=== PATIENT | female | born 1945 | race African-American/Black ===

== ENCOUNTER 2016-11-04 19:46 | Observation (INO) | payer BC, OTHER ==
[2016-11-04 19:53] VITALS: BMI 29.2
[2016-11-04] MEDS ORDERED: ASPIRIN 81 MG CHEWABLE TABLETS PO ONE (20:43)
[2016-11-04] MEDS ORDERED: ASPIRIN 81 MG CHEWABLE TABLETS ONE (20:46)
[2016-11-04 21:12] LABS: BASOPHIL 0.7 % (0-2.0); EOSINOPHIL 1.9 % (0-4.5); MCH 24.7 pg (25.7-33.7); MCHC 31.1 g/dl (32.0-36.0); MEAN CELL VOLUME 79.5 fl (80-96); MEAN PLT VOLUME 9.8 fl (7.5-11.1); NEUTROPHILS 46.3 % (42.8-82.8); PLATELET COUNT 295 K/MM3 (134-434); RDW 16.4 % (11.6-15.6); WHITE BLOOD COUNT 4.8 K/mm3 (4.0-10.0)
[2016-11-04 21:29] LABS: INR 1.74 (0.82-1.09); PROTHROMBIN TIME (PATIENT) 19.4 SEC (9.98-11.88)
[2016-11-04 21:32] LABS: ACTIVATED PTT 52.9 SECONDS (26.9-34.4)
[2016-11-04 21:38] LABS: ALBUMIN 3.8 g/dl (3.4-5.0); ANION GAP 5 (8-16); BILIRUBIN,TOTAL 0.3 mg/dL (0.2-1.0); CALCIUM 9.4 mg/dL (8.5-10.1); CO2 28 mmol/L (21-32); CREATININE 0.9 mg/dL (0.55-1.02); GLUCOSE,RANDOM 74 mg/dL (74-106); SGOT/AST 15 U/L (15-37); SGPT/ALT 19 U/L (12-78); TOT PROT 8.2 g/dl (6.4-8.2)
[2016-11-04 21:44] LABS: ALK PHOS 60 U/L (45-117); TROPONIN I < 0.02 ng/ml (0.00-0.05)
[2016-11-04 21:45] LABS: THYROID STIMULATING HORMONE 4.51 uIU/ml (0.358-3.74)
--- NOTE | 2016-11-04 22:51 | PDOC ---
History of Present Illness - General History Source: Patient, Old Records Exam Limitations: No Limitations - History of Present Illness Initial Comments: 11/04/16 22:56 The patient is a 71 year old female, with a significant past medical history of HTN, AFIB (on xarelto), HLD and Left sided breast CA (Cancer free since 1989), who presents to the emergency department with chest pain and palpitations 1 hour prior to presentation. She reports that she has had palpitations in that passed but never accompanied with chest tightness. She notes the palpitations usually resolve in less than a minute. She reports that she usually gets worked up by her perioperative nurse every 6 months. She states that her last stress test and echocardiogram were within normal limits. The patient denies shortness of breath, headache and dizziness. Denies fever, chills, nausea, vomit, diarrhea and constipation. Denies dysuria, frequency, urgency and hematuria. Allergies: None Past surgical history: None reported Social history: No alcohol, tobacco or drug use reported PMD - Dr. Melissa Henley Coater Helper - Dr. Cohen <Baldemar Juan - Last Filed: 11/04/16 23:49> - General History Source: Patient Exam Limitations: No Limitations <Júnior Crain - Last Filed: 11/05/16 00:08> - General Chief Complaint: Chest Pain Stated Complaint: PALPITATIONS Time Seen by Provider: 11/04/16 19:57 Past History <Baldemar Juan - Last Filed: 11/04/16 23:49> - Past Medical History Cancer: Yes (BREAST) Cardiac Disorders: Yes (A FIB) HTN: Yes Hypercholesterolemia: Yes - Immunization History Immunization Up to Date: Yes - Psycho/Social/Smoking Cessation Hx Anxiety: No Suicidal Ideation: No Smoking Status: No Smoking History: Former smoker Have you smoked in the past 12 months: No Number of Cigarettes Smoked Daily: 0 If you are a former smoker, when did you quit?: 35years ago Information on smoking cessation initiated: No Hx Alcohol Use: No Drug/Substance Use Hx: No Substance Use Type: None <Júnior Crain - Last Filed: 11/05/16 00:08> - Past Medical History Allergies/Adverse Reactions: Allergies Allergy/AdvReac Type Severity Reaction Status Date / Time No Known Allergies Allergy Verified 11/04/16 19:49 Home Medications: Ambulatory Orders Amlodipine Besylate [Norvasc -] 10 mg PO DAILY 03/11/14 Atenolol [Tenormin -] 50 mg PO DAILY 03/11/14 Atorvastatin Ca [Lipitor -] 10 mg PO DAILY 03/11/14 Furosemide [Lasix -] 20 mg PO ASDIR 03/11/14 Rivaroxaban [Xarelto -] 15 mg PO DAILY 04/27/15 Review of Systems - Review of Systems Able to Perform ROS?: Yes Comments:: 11/04/16 22:56 GENERAL/CONSTITUTIONAL: No fever or chills. No weakness. HEAD, EYES, EARS, NOSE AND THROAT: No change in vision. No ear pain or discharge. No sore throat. CARDIOVASCULAR: +Chest pain and palpitations. No shortness of breath RESPIRATORY: No cough, wheezing, or hemoptysis. GASTROINTESTINAL: No nausea, vomiting, diarrhea or constipation. GENITOURINARY: No dysuria, frequency, or change in urination. MUSCULOSKELETAL: No joint or muscle swelling or pain. No neck or back pain. SKIN: No rash NEUROLOGIC: No headache, vertigo, loss of consciousness, or change in strength/ sensation. ENDOCRINE: No increased thirst. No abnormal weight change HEMATOLOGIC/LYMPHATIC: No anemia, easy bleeding, or history of blood clots. ALLERGIC/IMMUNOLOGIC: No hives or skin allergy. <Baldemar Juan - Last Filed: 11/04/16 23:49> *Physical Exam - Vital Signs Last Vital Signs Temp Pulse Resp BP Pulse Ox 98.3 F 63 16 127/80 100 11/04/16 19:49 11/04/16 19:49 11/04/16 19:49 11/04/16 19:49 11/04/16 19:49 - Physical Exam Comments: 11/04/16 22:56 GENERAL: Awake, alert, and fully oriented, in no acute distress HEAD: No signs of trauma, normocephalic, atraumatic EYES: PERRLA, EOMI, sclera anicteric, conjunctiva clear ENT: Auricles normal inspection, hearing grossly normal, nares patent, oropharynx clear without exudates. Moist mucosa NECK: Normal ROM, supple, no lymphadenopathy, JVD, or masses LUNGS: No distress, speaks full sentences, clear to auscultation bilaterally HEART: Regular rate and rhythm, normal S1 and S2, no murmurs, rubs or gallops, peripheral pulses normal and equal bilaterally. ABDOMEN: Soft, nontender, normoactive bowel sounds. No guarding, no rebound. No masses EXTREMITIES: Normal inspection, Normal range of motion, no edema. No clubbing or cyanosis. NEUROLOGICAL: Cranial nerves II through XII grossly intact. Normal speech, normal gait, no focal sensorimotor deficits SKIN: Warm, Dry, normal turgor, no rashes or lesions noted. <Baldemar Juan - Last Filed: 11/04/16 23:49> - Vital Signs Last Vital Signs Temp Pulse Resp BP Pulse Ox 98.3 F 63 16 127/80 100 11/04/16 19:49 11/04/16 19:49 11/04/16 19:49 11/04/16 19:49 11/04/16 19:49 <Júnior Crain - Last Filed: 11/05/16 00:08> Heart Score/ECG Review - History History: Highly suspicious - Electrocardiogram EKG: Normal - Age Age: >/= 65 - Risk Factors Risk Factors Heart Score: Yes Hx Hypertension Based on the list above the patient has:: 1-2 risk factors - Troponin Troponin: </= normal limit - Score Heart Score - Total: 5 #1 ECG reviewed & interpreted by me at: 20:05 11/04/16 22:54 NSR 61, LVH, no std/sherman, T wave flat III, QTC 420 msec <Júnior Crain - Last Filed: 11/05/16 00:08> ED Treatment Course - LABORATORY CBC & Chemistry Diagram: 11/04/16 21:00 11/04/16 21:00 - ADDITIONAL ORDERS Additional order review: Laboratory Results 11/04/16 11/04/16 21:00 21:00 INR 1.74 H D PTT (Actin FS) 52.9 H Sodium 140 Potassium 4.0 Chloride 107 Carbon Dioxide 28 Anion Gap 5 L BUN 11 Creatinine 0.9 D Creat Clearance w eGFR > 60 Random Glucose 74 D Calcium 9.4 Total Bilirubin 0.3 D AST 15 D ALT 19 D Alkaline Phosphatase 60 Creatine Kinase 70 Troponin I < 0.02 Total Protein 8.2 Albumin 3.8 TSH 4.51 H 11/04/16 21:00 RBC 4.71 MCV 79.5 L MCHC 31.1 L RDW 16.4 H D MPV 9.8 D Neutrophils % 46.3 Lymphocytes % 40.5 H Monocytes % 10.6 H Eosinophils % 1.9 D Basophils % 0.7 - RADIOLOGY Radiograph Interpretation: 11/04/16 22:57 Chest X-Ray Reviewed by: Dr. Susanna Velasquez Impression: No significant interval change or acute lung disease is present. - Medications Given in the ED: ED Medications Discontinued Medications Generic Name Dose Route Start Last Admin Trade Name Freq PRN Reason Stop Dose Admin Aspirin 324 mg 11/04/16 20:43 11/04/16 20:54 Asa - PO 11/04/16 20:44 324 mg ONCE ONE Administration <Baldemar Juan - Last Filed: 11/04/16 23:49> - LABORATORY CBC & Chemistry Diagram: 11/04/16 21:00 11/04/16 21:00 - ADDITIONAL ORDERS Additional order review: Laboratory Results 11/04/16 11/04/16 21:00 21:00 INR 1.74 H D PTT (Actin FS) 52.9 H Sodium 140 Potassium 4.0 Chloride 107 Carbon Dioxide 28 Anion Gap 5 L BUN 11 Creatinine 0.9 D Creat Clearance w eGFR > 60 Random Glucose 74 D Calcium 9.4 Total Bilirubin 0.3 D AST 15 D ALT 19 D Alkaline Phosphatase 60 Creatine Kinase 70 Troponin I < 0.02 Total Protein 8.2 Albumin 3.8 TSH 4.51 H 11/04/16 21:00 RBC 4.71 MCV 79.5 L MCHC 31.1 L RDW 16.4 H D MPV 9.8 D Neutrophils % 46.3 Lymphocytes % 40.5 H Monocytes % 10.6 H Eosinophils % 1.9 D Basophils % 0.7 - RADIOLOGY Radiology Studies Ordered: Category Date Time Status CHEST X-RAY PORTABLE* [RAD] Stat Radiology 11/04/16 20:29 Completed - Medications Given in the ED: ED Medications Discontinued Medications Generic Name Dose Route Start Last Admin Trade Name Freq PRN Reason Stop Dose Admin Aspirin 324 mg 11/04/16 20:43 11/04/16 20:54 Asa - PO 11/04/16 20:44 324 mg ONCE ONE Administration <Júnior Crain - Last Filed: 11/05/16 00:08> Medical Decision Making - Medical Decision Making 11/04/16 22:58 Dr. Magnolia Jeong was called regarding the patient 10:47pm. Dr. Jeong was consulted regarding the patient at 10:49pm [phone] <DrakeRylieBaldemarsherry Pardo - Last Filed: 11/04/16 23:49> - Medical Decision Making 11/04/16 22:51 A portion of this note was documented by scribe services under my direction. I have reviewed the details of the note, within reason, and agree with the documentation with the following case summary and management plan written by me. Patient treated in the ED. Nursing notes are reviewed and incorporated into the medical decision-making. Vital signs reviewed. Peripheral IV access obtained by the nurse, laboratory studies are drawn and sent, reviewed and interpreted by myself. Vital Signs Temp Pulse Resp BP Pulse Ox 98.3 F 63 16 127/80 100 11/04/16 19:49 11/04/16 19:49 11/04/16 19:49 11/04/16 19:49 11/04/16 19:49 71 year old female with past medical history of atrial fibrillation on xarleto, HTN, left sided breast cancer now in remission presents to the ED for chest discomfort. She was well and in her usual state of health when she was watching television and suddenly felt chest tightness and lightheadedness, but NO shortness of breath, nausea, diarphoresis. Reported that the chest tightness and resolved on her way to the ER. Denies pain now. 1st time episode. Did have a stress test several months ago which was unremarkable (at [facility]). Given her history, the patient needs to be LACIE'd. Initial troponin is negative and chest xray is unremarkable. However, given her concerning history, the patient should be admitted to observation for further cardiac workup. Aspirin ordered. 11/05/16 00:06 CBC, BMP 11/04/16 21:00 11/04/16 21:00 CMP Sodium 140 mmol/L (136-145) 11/04/16 21:00 Potassium 4.0 mmol/L (3.5-5.1) 11/04/16 21:00 Chloride 107 mmol/L (98-107) 11/04/16 21:00 Carbon Dioxide 28 mmol/L (21-32) 11/04/16 21:00 Anion Gap 5 (8-16) L 11/04/16 21:00 BUN 11 mg/dL (7-18) 11/04/16 21:00 Creatinine 0.9 mg/dL (0.55-1.02) D 11/04/16 21:00 Creat Clearance w eGFR > 60 (>60) 11/04/16 21:00 Random Glucose 74 mg/dL (74-106) D 11/04/16 21:00 Calcium 9.4 mg/dL (8.5-10.1) 11/04/16 21:00 Total Bilirubin 0.3 mg/dL (0.2-1.0) D 11/04/16 21:00 AST 15 U/L (15-37) D 11/04/16 21:00 ALT 19 U/L (12-78) D 11/04/16 21:00 Alkaline Phosphatase 60 U/L (45-117) 11/04/16 21:00 Creatine Kinase 70 IU/L (26-192) 11/04/16 21:00 Troponin I < 0.02 ng/ml (0.00-0.05) 11/04/16 21:00 Total Protein 8.2 g/dl (6.4-8.2) 11/04/16 21:00 Albumin 3.8 g/dl (3.4-5.0) 11/04/16 21:00 TSH 4.51 uIU/ml (0.358-3.74) H 11/04/16 21:00 Urine Test Results Urine Color Lt. yellow 11/04/16 22:50 Urine Appearance Clear 11/04/16 22:50 Urine pH 7.5 (5.0-8.0) 11/04/16 22:50 Ur Specific [place] <= 1.005 (1.001-1.035) 11/04/16 22:50 Urine Protein Negative (NEGATIVE) 11/04/16 22:50 Urine Glucose (UA) Negative (NEGATIVE) 11/04/16 22:50 Urine Ketones Negative (NEGATIVE) 11/04/16 22:50 Urine Blood Negative (NEGATIVE) 11/04/16 22:50 Urine Nitrite Negative (NEGATIVE) 11/04/16 22:50 Urine Bilirubin Negative (NEGATIVE) 11/04/16 22:50 Ur Leukocyte Esterase Negative (NEGATIVE) 11/04/16 22:50 Labs reviewed. Trop negative. Chest xray reviewed. No acute findings. I had discussed the case with Dr. Magnolia Jeong. Because the patient is an observation patient, she requests hospitalist. Case discussed with Dr. Arreola. She accepts the patient to tele observation. Case discussed in detail with admitting physician including history, physical exam and ancillary studies. Admitting physician has assumed care for the patient, will follow all pending diagnostics and will complete the evaluation and treatment. <Júnior Crain - Last Filed: 11/05/16 00:08> *DC/Admit/Observation/Transfer - Attestations Scribe Attestion: 11/04/16 22:57 Documentation prepared by Baldemar Juan, acting as electromedical equipment technician for Júnior Crain MD. <Baldemar Juan - Last Filed: 11/04/16 23:49> - Discharge Dispostion Admit: Yes <Júnior Crain - Last Filed: 11/05/16 00:08> Diagnosis at time of Disposition: Chest pain Qualifiers: Chest pain type: unspecified Qualified Code(s): R07.9 - Chest pain, unspecified - Discharge Dispostion Condition at time of disposition: Stable - Referrals Referrals: Melissa Henley MD [Primary Care Provider] -
[2016-11-04 23:05] LABS: PH,URINE 7.5 (5.0-8.0); URINE APPEARANCE CLEAR; URINE BILIRUBIN NEGATIVE (NEGATIVE); URINE BLOOD NEGATIVE (NEGATIVE); URINE COLOR LT. YELLOW; URINE GLUCOSE (UA) NEGATIVE (NEGATIVE); URINE KETONE NEGATIVE (NEGATIVE); URINE LEUK ESTERASE NEGATIVE (NEGATIVE); URINE NITRITE NEGATIVE (NEGATIVE); URINE PROTEIN NEGATIVE (NEGATIVE); URINE UROBILINOGEN 0.2 E.U/dl E.U./dl (0.2-1.0)
--- NOTE | 2016-11-04 23:56 | HP ---
CHIEF COMPLAINT: PCP: Dr Malcolm Cardio: Dr Shell HISTORY OF PRESENT ILLNESS: This is a 71 yo F with PMH of HLD, HTN, AFIB (on xarelto), and L breast CA (1989 ; s/p chemo, tamoxifen and mastectomy), who presents due to palpitations with associated chest tightness and lightheadedness x 1 hr. She has had palpitations before but they last only a few seconds and are not associated with chest discomfort. She has never had chest pain. At the time of her symptoms, she measured her BP and heart rate with a machine to be 136 systolic and 62 BPM. She sees a ups driver every 6 months and had a negative stress test and echocardiogram recently. She denies h/a, consfusion, loc, diaphroresis, cough, orthopnea, n/v, abd pain, diarrhea, constipation or dysuria. ER course was notable for: (1) labs (2)cxr, ekg (3)asa 324 Recent Travel: denies PAST MEDICAL HISTORY: as above PAST SURGICAL HISTORY: unilateral mastectomy, breast reconstruction, L ankle surgery Social History: lives at home, retired Smoking: past social smoker 3 cigs/w in her 20's Alcohol: 1 glass/week Drugs: denies Family History: Allergies No Known Allergies Allergy (Verified 11/04/16 19:49) HOME MEDICATIONS: Medication Instructions Recorded Amlodipine Besylate [Norvasc -] 10 mg PO DAILY 03/11/14 Atenolol [Tenormin -] 50 mg PO DAILY 03/11/14 Atorvastatin Ca [Lipitor -] 10 mg PO DAILY 03/11/14 Furosemide [Lasix -] 20 mg PO ASDIR 03/11/14 Rivaroxaban [Xarelto -] 15 mg PO DAILY 04/27/15 REVIEW OF SYSTEMS CONSTITUTIONAL: Absent: fever, chills, diaphoresis, malaise, loss of appetite, weight change HEENT: Absent: rhinorrhea, nasal congestion, throat pain CARDIOVASCULAR: Absent: syncope, peripheral edema RESPIRATORY: Absent: cough, shortness of breath, dyspnea with exertion, orthopnea GASTROINTESTINAL: Absent: abdominal pain, abdominal distension, nausea, vomiting, diarrhea, constipation GENITOURINARY: Absent: dysuria, frequency, urgency MUSCULOSKELETAL: Absent: myalgia, arthralgia SKIN: Absent: rash HEMATOLOGIC/IMMUNOLOGIC: Absent: easy bleeding, easy bruising ENDOCRINE: Absent: unexplained weight gain, unexplained weight loss, heat intolerance, cold intolerance NEUROLOGIC: Absent: headache, focal weakness or paresthesias, seizure, mental status changes PSYCHIATRIC: Absent: anxiety, depression PHYSICAL EXAMINATION Vital Signs - 24 hr 11/04/16 11/04/16 19:49 23:51 Temperature 98.3 F Pulse Rate 63 Respiratory 16 Rate Blood Pressure 127/80 O2 Sat by Pulse 100 98 Oximetry (%) GENERAL: Awake, alert, and fully oriented, in no acute distress. HEAD: Normal with no signs of trauma. EYES: Pupils equal, round and reactive to light, extraocular movements intact, sclera anicteric, conjunctiva clear. EARS, NOSE, THROAT: Moist mucous membranes. NECK: supple without JVD LUNGS: Breath sounds equal, clear to auscultation bilaterally. HEART: Regular rate and rhythm, normal S1 and S2 ABDOMEN: Soft, nontender, not distended, normoactive bowel sounds MUSCULOSKELETAL: No CVA tenderness. UPPER EXTREMITIES: 2+ pulses, warm, well-perfused. No peripheral edema. LOWER EXTREMITIES: 2+ pulses, warm, well-perfused. No calf tenderness. No peripheral edema. NEUROLOGICAL: Cranial nerves II-XII grossly intact. Normal speech. PSYCHIATRIC: Cooperative. Good eye contact. Appropriate mood and affect. SKIN: Warm, dry Laboratory Results - last 24 hr 11/04/16 11/04/16 11/04/16 21:00 21:00 21:00 WBC 4.8 RBC 4.71 Hgb 11.6 D Hct 37.5 D MCV 79.5 L MCHC 31.1 L RDW 16.4 H D Plt Count 295 D MPV 9.8 D Neutrophils % 46.3 Lymphocytes % 40.5 H Monocytes % 10.6 H Eosinophils % 1.9 D Basophils % 0.7 INR 1.74 H D PTT (Actin FS) 52.9 H Sodium 140 Potassium 4.0 Chloride 107 Carbon Dioxide 28 Anion Gap 5 L BUN 11 Creatinine 0.9 D Creat Clearance w eGFR > 60 Random Glucose 74 D Calcium 9.4 Total Bilirubin 0.3 D AST 15 D ALT 19 D Alkaline Phosphatase 60 Creatine Kinase 70 Troponin I < 0.02 Total Protein 8.2 Albumin 3.8 TSH 4.51 H Urine Color Urine Appearance Urine pH Ur Specific [place] Urine Protein Urine Glucose (UA) Urine Ketones Urine Blood Urine Nitrite Urine Bilirubin Urine Urobilinogen Ur Leukocyte Esterase 11/04/16 22:50 WBC RBC Hgb Hct MCV MCHC RDW Plt Count MPV Neutrophils % Lymphocytes % Monocytes % Eosinophils % Basophils % INR PTT (Actin FS) Sodium Potassium Chloride Carbon Dioxide Anion Gap BUN Creatinine Creat Clearance w eGFR Random Glucose Calcium Total Bilirubin AST ALT Alkaline Phosphatase Creatine Kinase Troponin I Total Protein Albumin TSH Urine Color Lt. yellow Urine Appearance Clear Urine pH 7.5 Ur Specific [place] <= 1.005 Urine Protein Negative Urine Glucose (UA) Negative Urine Ketones Negative Urine Blood Negative Urine Nitrite Negative Urine Bilirubin Negative Urine Urobilinogen 0.2 e.u/dl Ur Leukocyte Esterase Negative ASSESSMENT/PLAN: This is a 71 yo F with PMH of HLD, HTN, AFIB (on xarelto), and L breast CA (1989 ; s/p chemo, tamoxifen and mastectomy), who presents due to palpitations with associated chest tightness and lightheadedness x 1 hr. CXR unremarkable EKG unremarkable Palpitations with chest tightness -resolved spontaneously -likely due to an episode of a fib -HEART score =4 -Chadsvasc=3 -RRR on ekg, trop negative x1 -s/p asa load, asa 81 daily -tele monitoring r/o arrythmia -bmp unremakable for electrolyte abnormalities Elevated TSH -free t4 A fib -continue xeralto HTN -amlodipine -atenolol -lasix HLD -statin FEN no ivf lytes stable DVT GI PPX: scd, xeralto, diet NA restricted diet Dispo: obs in tele Problem List - Problem (1) Atrial fibrillation Code(s): I48.91 - UNSPECIFIED ATRIAL FIBRILLATION (2) Palpitations Code(s): R00.2 - PALPITATIONS (3) Chest tightness Code(s): R07.89 - OTHER CHEST PAIN (4) HTN (hypertension) Code(s): I10 - ESSENTIAL (PRIMARY) HYPERTENSION (5) HLD (hyperlipidemia) Code(s): E78.5 - HYPERLIPIDEMIA, UNSPECIFIED Visit type - Emergency Visit Emergency Visit: Yes Care time: The patient presented to the Emergency Department on the above date and was hospitalized for further evaluation of their emergent condition. - New Patient This patient is new to me today: Yes Date on this admission: 11/05/16 - Critical Care Critical Care patient: No
--- NOTE | 2016-11-04 23:57 | PN ---
<Saurav Arreola - Last Filed: 11/04/16 23:56> Teaching Attending Note Name of Resident: Leela Faustin ATTENDING PHYSICIAN STATEMENT I saw and evaluated the patient. I reviewed the resident's note and discussed the case with the resident. I agree with the resident's findings and plan as documented. SUBJECTIVE: OBJECTIVE: ASSESSMENT AND PLAN: <JennEduardo - Last Filed: 11/05/16 01:46> Teaching Attending Note ATTENDING PHYSICIAN STATEMENT I saw and evaluated the patient. I reviewed the resident's note and discussed the case with the resident. I agree with the resident's findings and plan as documented. SUBJECTIVE: The patient is a 71 year old female, with a significant past medical history of HTN, AFIB (on xarelto), HLD and Left sided breast CA (s/p chemotherapy), who presents to the emergency department with palpitations that started today and lasted one hour. She reports chest tightness. She notes that she has had palpitations in that passed but never accompanied with chest tightness. She reports that her last stress test and echocardiogram were one year ago and within normal limits. Patient denies SOB, fever, cough, and diarrhea. OBJECTIVE: Physical: VS: Last Vital Signs Temp Pulse Resp BP Pulse Ox 98.3 F 63 16 127/80 98 11/04/16 19:49 11/04/16 19:49 11/04/16 19:49 11/04/16 19:49 11/04/16 23:51 GEN: NAD HEENT: NCAT, PERRL CARD: RRR, S1 S2 RESP: CTAB ABD: NT, BWS x4 EXT: - CCE Labs: CBCD WBC 4.8 K/mm3 (4.0-10.0) 11/04/16 21:00 RBC 4.71 M/mm3 (3.60-5.2) 11/04/16 21:00 Hgb 11.6 GM/dL (10.7-15.3) D 11/04/16 21:00 Hct 37.5 % (32.4-45.2) D 11/04/16 21:00 MCV 79.5 fl (80-96) L 11/04/16 21:00 MCHC 31.1 g/dl (32.0-36.0) L 11/04/16 21:00 RDW 16.4 % (11.6-15.6) H D 11/04/16 21:00 Plt Count 295 K/MM3 (134-434) D 11/04/16 21:00 MPV 9.8 fl (7.5-11.1) D 11/04/16 21:00 CMP Sodium 140 mmol/L (136-145) 11/04/16 21:00 Potassium 4.0 mmol/L (3.5-5.1) 11/04/16 21:00 Chloride 107 mmol/L (98-107) 11/04/16 21:00 Carbon Dioxide 28 mmol/L (21-32) 11/04/16 21:00 Anion Gap 5 (8-16) L 11/04/16 21:00 BUN 11 mg/dL (7-18) 11/04/16 21:00 Creatinine 0.9 mg/dL (0.55-1.02) D 11/04/16 21:00 Creat Clearance w eGFR > 60 (>60) 11/04/16 21:00 Calcium 9.4 mg/dL (8.5-10.1) 11/04/16 21:00 Total Bilirubin 0.3 mg/dL (0.2-1.0) D 11/04/16 21:00 AST 15 U/L (15-37) D 11/04/16 21:00 ALT 19 U/L (12-78) D 11/04/16 21:00 Alkaline Phosphatase 60 U/L (45-117) 11/04/16 21:00 Total Protein 8.2 g/dl (6.4-8.2) 11/04/16 21:00 Albumin 3.8 g/dl (3.4-5.0) 11/04/16 21:00 Imaging: CXR Impression: negative for any acute lung disease ASSESSMENT AND PLAN: Patient is a 71 year old female with a past medical history of AFIB, HTN, and Breast Cancer who presents with chest pain. 1.Chest Pain -r/o ACS -Hear score 4 -Trend Troponin/ECG -Cardiology consult -Aspirin -Continue beta block -O2 -Morphine/Nitro -ECHO complete 2.HLD -Check lipid panel -Continue statin 3.AFIB - Continue rate control and beta omar -Continue Xarelto -chaDS2 vaSC 3 4.DVT PPX -On Xarelto Documentation prepared by Eduardo Barajas, acting as medical device sales representative for Saurav Arreola D.O.
[2016-11-05] MEDS ORDERED: FUROSEMIDE 20 MG TABLET (FP) PO SCH (01:00)
[2016-11-05 09:03] LABS: ANION GAP 9 (8-16); CALCIUM 9.2 mg/dL (8.5-10.1); CO2 26 mmol/L (21-32); CREATININE 0.8 mg/dL (0.55-1.02); FREE T4 1.18 ng/dl (0.76-1.46); GLUCOSE,RANDOM 87 mg/dL (74-106); MAGNESIUM 2.4 mg/dL (1.8-2.4); PHOSPHOROUS 3.7 mg/dL (2.5-4.9); TROPONIN I < 0.02 ng/ml (0.00-0.05)
[2016-11-05] MEDS ORDERED: RIVAROXABAN 15 MG TABLET PO SCH (10:00)
[2016-11-05] MEDS ORDERED: amLODIPine BESYLATE 10 MG TABLET (FP) PO SCH (10:00)
[2016-11-05] MEDS ORDERED: ATENOLOL 50 MG TABLET (FP) PO SCH (10:00)
[2016-11-05] MEDS ORDERED: ASPIRIN COATED 81 MG TABLET.EC PO SCH (10:00)
--- NOTE | 2016-11-05 11:16 | EKG ---
Test Reason : Blood Pressure : / mmHG Vent. Rate : 061 BPM Atrial Rate : 061 BPM P-R Int : 184 ms QRS Dur : 094 ms QT Int : 418 ms P-R-T Axes : 026 -12 036 degrees QTc Int : 420 ms NORMAL SINUS RHYTHM MINIMAL VOLTAGE CRITERIA FOR LVH, MAY BE NORMAL VARIANT BORDERLINE ECG WHEN COMPARED WITH ECG OF 27-APR-2015 14:23, NONSPECIFIC T WAVE ABNORMALITY HAS REPLACED INVERTED T WAVES IN INFERIOR LEADS QT HAS SHORTENED Confirmed by WERNER CARTER MD ([id number]) on 11/05/2016 11:16:12 AM Referred By: Confirmed By:WERNER CARTER MD
--- NOTE | 2016-11-05 11:58 | CONSULT ---
Consult Consult Specialty:: Cardiology Referred by:: Hospitalist Reason for Consultation:: Chest pain and palpitations - History of Present Illness Chief Complaint: Chest pressure and palpitations History of Present Illness: 71 year old woman with a history of HTN, HLD, Pafib s/p DCCV approx 1 year ago, on xarelto, Breast Ca presented with chest pressure and palpitations yesterday. Pt. [facility] and examined today in [facility]. She states that she has had intermittent palpitations since her DCCV 1 year ago but that it was never associated with chest pressure. This episode occurred approx 1 hour prior to arrival to the ER, started with palpitations and was associated with mild substernal chest pressure. 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 She was seen and examined today in [facility]. denies any symptoms currently. denies any other associated symptoms. no lightheadedness/dizziness/syncope/near syncope/pnd/orthopnea/or LE edema. - History Source History Provided By: Patient, Medical Record Limitations to Obtaining History: No Limitations - Past Medical History Cardio/Vascular: Yes: AFIB, HTN, Hyperlipdemia ...: No Heme/Onc: Yes: Cancer - Alcohol/Substance Use Hx Alcohol Use: No - Smoking History Smoking history: Former smoker Have you smoked in the past 12 months: No Aproximately how many cigarettes per day: 0 If you are a former smoker, when did you quit?: 35years ago - Social History ADL: Independent History of Recent Travel: No Home Medications - Allergies Allergies/Adverse Reactions: Allergies Allergy/AdvReac Type Severity Reaction Status Date / Time No Known Allergies Allergy Verified 11/04/16 19:49 - Home Medications Home Medications: Ambulatory Orders Amlodipine Besylate [Norvasc -] 10 mg PO DAILY 03/11/14 Atenolol [Tenormin -] 50 mg PO DAILY 03/11/14 Atorvastatin Ca [Lipitor -] 10 mg PO DAILY 03/11/14 Furosemide [Lasix -] 20 mg PO ASDIR 03/11/14 Rivaroxaban [Xarelto -] 15 mg PO DAILY 04/27/15 Family Disease History - Family Disease History Family History: Denies Review of Systems - Review of Systems Constitutional: denies: No Symptoms, Chills, Diaphoresis, Fever, Lethargy, Loss of Appetite, Malaise, Night Sweats, Unintentional Wgt. Loss, Weakness, Other Eyes: denies: No Symptoms, Blind Spots, Blurred Vision, Double Vision, Eye Pain , Floaters, Photophobia, Recent Change in Vision, Other HENT: denies: No Symptoms, Difficult Swallowing, Ear Discharge, Ear Pain, Epistaxis, Gingival Bleeding, Hearing Loss, Mouth Swelling, Nasal Congestion, Ocular Prosthesis, Throat Pain, Toothache, Ringing in Ears, Other Neck: denies: No Symptoms, Decreased ROM, Lumps, Pain on Movement, Stiffness, Swollen Glands, Tenderness, Other Cardiovascular: reports: Chest Pain, Palpitations. denies: No Symptoms, Edema, Shortness of Breath, Other Respiratory: denies: No Symptoms, Cough, Exercise Intolerance, Hemoptysis, Orthopnea, PND, Snoring, SOB, SOB on Exertion, Wheezing, Other Gastrointestinal: denies: No Symptoms, Abdominal Pain, Bloating, Constipation, Diarrhea, Dysphagia, Indigestion, Melena, Nausea, Rectal Bleeding, Vomiting, Vomiting Blood, Other Genitourinary: denies: No Symptoms, Burning, Discharge, Dysuria, Flank Pain, Frequency, Hematuria, Incontinence, Lesions, Menses, Pain, Testicular Mass, Testicular Pain, Testicular Swelling, Urgency, Vaginal Bleeding, Other Breasts: denies: No Symptoms Reported, See HPI, Breast Implants, Discharge from Nipple, Lumps, Pain, Skin Changes, Other Musculoskeletal: denies: No Symptoms, Back Pain, Crepitus, Decreased ROM, Extremity Pain, Joint Pain, Joint Swelling, Muscle Pain, Muscle Cramps, Muscle Weakness, Other Integumentary: denies: No Symptoms, Blister, Bruising, Change in Color, Eczema, Erythema, Incision, Lesions, Lump, Pallor, Pruritis, Rash, Wound, Other Neurological: denies: No Symptoms, Change in LOC, Change in Speech, Confusion, Dizziness, Headache, Incoordination, Numbness, Parasthesia, Pre-Existing Deficit , Seizure, Syncope, Tremors, Unsteady Gait, Weakness, Other Endocrine: denies: No Symptoms, Excessive Sweating, Flushing, Increased Hunger, Increased Thirst, Intolerance to Cold, Intolerance to Heat, Unexplained Weight Gain, Unexplained Weight Loss, Other Hematology/Lymphatic: denies: No Symptoms, Easily Bruised, Excessive Bleeding, Swollen Glands, Other Psychiatric: denies: No Symptoms, Altered Sleep Pattern, Anxiety, Depression, Hallucinations, Panic, Paranoia, Suicidal, Other - Risk Factors Known Risk Factors: Yes: Hypercholesterolemia, Hypertension Vital Signs: Vital Signs Temperature 98 F 11/05/16 07:46 Pulse Rate 58 L 11/05/16 07:46 Respiratory Rate 18 11/05/16 07:46 Blood Pressure 109/71 11/05/16 07:46 O2 Sat by Pulse Oximetry (%) 96 11/05/16 07:46 Constitutional: Yes: Well Nourished, No Distress, Calm Eyes: Yes: WNL, Conjunctiva Clear, EOM Intact, PERRL HENT: Yes: WNL, Atraumatic, Normocephalic Neck: Yes: WNL, Supple, Trachea Midline Respiratory: Yes: WNL, Regular, CTA Bilaterally. No: Rales, Rhonchi, Wheezes Gastrointestinal: Yes: WNL, Normal Bowel Sounds, Soft. No: Distention, Tenderness Renal/: Yes: WNL Cardiovascular: Yes: WNL, Regular Rate and Rhythm. No: Bradycardia, Tachycardia , Pulse Irregular, Gallop, Rub, Varicosities JVD: No Carotid Bruit: No PMI: Non-Displaced Heart Sounds: Yes: S1, S2. No: Split S2, S3, S4, Clicks, Gallop, Rub, Bruit Murmur: No: Systolic Murmur, Diastolic Murmur Musculoskeletal: Yes: WNL Extremities: Yes: WNL Edema: No Peripheral Pulses WNL: Yes Peripheral Pulses: 2+ Left Doralis Pedis, 2+ Right Dorsalis Pedis Integumentary: Yes: WNL Neurological: Yes: WNL, Alert, Oriented, Cran Nerves II-XII Intact ...Motor Strength: WNL Psychiatric: Yes: WNL, Alert, Oriented - Other Data Labs, Other Data: CBC, BMP 11/05/16 05:35 INR, PTT INR 1.74 (0.82-1.09) H D 11/04/16 21:00 Troponin, BNP 11/05/16 05:35 Troponin I < 0.02 Troponin, BNP 11/05/16 05:35 Troponin I < 0.02 ekg-nsr 61bpm, LVH, T inversion lead V2, nsst Echo: Pending Imaging - Results Chest X-ray: Report Reviewed, Image Reviewed EKG: Report Reviewed, Image Reviewed Other: Report Reviewed, Image Reviewed (tele-nsr, sinus bradycardia, no afib) Problem List - Problems (1) Chest tightness Code(s): R07.89 - OTHER CHEST PAIN (2) HLD (hyperlipidemia) Code(s): E78.5 - HYPERLIPIDEMIA, UNSPECIFIED (3) HTN (hypertension) Code(s): I10 - ESSENTIAL (PRIMARY) HYPERTENSION (4) Atrial fibrillation Code(s): I48.91 - UNSPECIFIED ATRIAL FIBRILLATION (5) Palpitations Code(s): R00.2 - PALPITATIONS Assessment/Plan 71 year old woman with a history of HTN, HLD, Pafib s/p DCCV approx 1 year ago, on xarelto, Breast Ca presented with chest pressure and palpitations yesterday. She states that she has had intermittent palpitations since her DCCV 1 year ago but that it was never associated with chest pressure. This episode occurred approx 1 hour prior to arrival to the ER, started with palpitations and was associated with mild substernal chest pressure. 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 HTN-well controlled -cont current medical regimen HLD -cont Lipitor
[2016-11-05 15:49] VITALS: BP 108/68; PULSE 59; TEMP 98.7
--- NOTE | 2016-11-05 16:01 | DS ---
Physical Exam: SUBJECTIVE: Patient seen and examined OBJECTIVE: Vital Signs Period Temp Pulse Resp BP Sys/Cruz Pulse Ox Last 24 Hr 97.9 F-98.7 F 58-59 17-20 99-121/51-76 96-99 PHYSICAL EXAM GENERAL: The patient is awake, alert, and fully oriented, in no acute distress. HEAD: Normal with no signs of trauma. EYES: PERRL, extraocular movements intact, sclera anicteric, conjunctiva clear. ENT: Ears normal, nares patent, oropharynx clear without exudates, moist mucous membranes. NECK: Trachea midline, full range of motion, supple. LUNGS: Breath sounds equal, clear to auscultation bilaterally, no wheezes, no crackles, no accessory muscle use. HEART: Regular rate and rhythm, S1, S2 without murmur, rub or gallop. ABDOMEN: Soft, nontender, nondistended, normoactive bowel sounds, no guarding, no rebound, no hepatosplenomegaly, no masses. EXTREMITIES: 2+ pulses, warm, well-perfused, no edema. NEUROLOGICAL: Cranial nerves II through XII grossly intact. Normal speech, gait not observed. PSYCH: Normal mood, normal affect. SKIN: Warm, dry, normal turgor, no rashes or lesions noted. LABS Laboratory Results - last 24 hr 11/05/16 11/05/16 05:35 05:35 Sodium 142 Potassium 3.9 Chloride 107 Carbon Dioxide 26 Anion Gap 9 BUN 12 Creatinine 0.8 Random Glucose 87 Calcium 9.2 Phosphorus 3.7 Magnesium 2.4 Troponin I < 0.02 Free T4 1.18 Cancelled HOSPITAL COURSE: This is a 71 yo F with PMH of HLD, HTN, paroxysmal Afib (s/p DCCV on Xarelto), and L breast CA (1989; s/p chemo, tamoxifen and mastectomy) admitted yesterday with chest pain and palpitations. Hospital course was notable for: -EKG: -Telemetry: No episodes of Afib -CXR: no acute lung disease -TNI neg x 3 -Echocardiogram: normal structure and function -Exercise stress test: no ischemia The patient is feeling well and is agreeable to discharge. She has a cardiology appointment in November and understands that she may need longer-term event monitoring. She will attempt to re-schedule her appointment to be seen earlier. Followup instructions and return precautions reviewed. Date of Admission:11/05/16 Date of Discharge: 11/05/16 Minutes to complete discharge: 35 Discharge Summary Reason For Visit: CHEST PAIN Current Active Problems Chest pain (Acute) Chest tightness (Acute) HLD (hyperlipidemia) (Acute) HTN (hypertension) (Acute) Condition: Improved - Instructions Diet, Activity, Other Instructions: You were admitted for chest pain and palpitations. Your lab work, echocardiogram, and stress test were all normal and did not reveal a cause for your pain. Please follow up with your letter of credit document examiner sooner than your November appointment if possible. You may need a longer term "event monitor" placed by your letter of credit document examiner. Return here for repeated episodes of chest pain, palpitations, shortness of breath, fainting/near fainting, or any other concerning symptoms. Referrals: Melissa Henley MD [Primary Care Provider] - Disposition: HOME - Home Medications Comprehensive Discharge Medication List: Ambulatory Orders Amlodipine Besylate [Norvasc -] 10 mg PO DAILY 03/11/14 Atenolol [Tenormin -] 50 mg PO DAILY 03/11/14 Atorvastatin Ca [Lipitor -] 10 mg PO DAILY 03/11/14 Furosemide [Lasix -] 20 mg PO ASDIR 03/11/14 Rivaroxaban [Xarelto -] 15 mg PO DAILY 04/27/15 This patient is new to me today: Yes Date on this admission: 11/05/16 Emergency Visit: Yes ED Registration Date: 11/05/16 Care time: The patient presented to the Emergency Department on the above date and was hospitalized for further evaluation of their emergent condition. Critical Care patient: No - Discharge Referral Referred to [facility] No
[2016-11-05] MEDS ORDERED: ATORVASTATIN CA 10 MG TABLET (FP) PO SCH (22:00)
== END 2016-11-05 16:51 | disposition home or self-care (01) ==
LOC: JER 19:46 → JERBED 11-05 00:18 → J4W 11-05 02:45
PROVIDERS: ADMIT Internal Medicine; ATTEND Registered Nurse Emergency
DX: R07.9 Chest pain, unspecified (principal); I10 Essential (primary) hypertension; Z79.01 Long term (current) use of anticoagulants; E78.5 Hyperlipidemia, unspecified; Z85.3 Personal history of malignant neoplasm of breast; Z87.891 Personal history of nicotine dependence; R00.2 Palpitations; I48.0 Paroxysmal atrial fibrillation
CPT/HCPCS: 36415; 71010-TC; 78452-TC; 80048; 80053; 81003; 82550; 83735; 84100; 84439; 84443; 84484; 85025; 85610; 85730; 87086; 93005; 93010; 93017; 93306-TC; 99285-25; A9502; G0378

== ENCOUNTER 2018-06-11 10:20 | Emergency (ER) | payer OTHER ==
[2018-06-11 10:28] VITALS: BP 113/64; PULSE 70; TEMP 98.7
--- NOTE | 2018-06-11 11:34 | PDOC ---
History of Present Illness - General Chief Complaint: Pain Stated Complaint: LEFT Shoulder PAIN Time Seen by Provider: 06/11/18 10:51 - History of Present Illness Initial Comments: 06/11/18 11:28 73 year old woman with past medical history of L breast implant (1993) 2/2 malignant breast CA, afib, HTN who presents with L breast "soreness" and some swelling for two days, gradual onset, that has been intermittently relieved with Tylenol. She denies fever, chest pain, abdominal pain, shortness of breath. She does pilates regularly and walks, but denies that she overexerted herself. L breast had a nipple reconstriction She denies any other complaints at bedside. PMHX: as in HPI PSHX: hysterectomy, L breast implant, R breast reduction, L ankle plate Meds: lipitor, xarelto, amlodipine Allergies: none Tob: none Etoh: none Rec drugs: none PCP: Kale Past History - Past Medical History Allergies/Adverse Reactions: Allergies Allergy/AdvReac Type Severity Reaction Status Date / Time No Known Allergies Allergy Verified 06/11/18 10:25 Home Medications: Ambulatory Orders Amlodipine Besylate [Norvasc -] 10 mg PO DAILY #0 11/05/16 Atenolol [Tenormin -] 50 mg PO DAILY #0 11/05/16 Atorvastatin Ca [Lipitor] 10 mg PO DAILY #0 11/05/16 Furosemide [Lasix -] 20 mg PO ASDIR #0 11/05/16 Rivaroxaban [Xarelto -] 20 mg PO DAILY 08/27/17 Levothyroxine [Synthroid -] 25 mcg PO DAILY@0700 #30 tablet 08/28/17 Acetaminophen [Tylenol] 325 mg PO BID #10 capsule 06/11/18 Methocarbamol [Robaxin -] 500 mg PO BID #10 tablet 06/11/18 Cancer: Yes (BREAST) Cardiac Disorders: Yes (A FIB) COPD: No CHF: Yes HTN: Yes Hypercholesterolemia: Yes - Surgical History Orthopedic Surgery: Yes (LEFT ANKLE) - Immunization History Immunization Up to Date: Yes - Suicide/Smoking/Psychosocial Hx Smoking Status: No Smoking History: Former smoker Have you smoked in the past 12 months: No Number of Cigarettes Smoked Daily: 0 If you are a former smoker, when did you quit?: many years Information on smoking cessation initiated: No Hx Alcohol Use: Yes (occasionally) Drug/Substance Use Hx: No Substance Use Type: Alcohol Hx Substance Use Treatment: No Review of Systems - Review of Systems Able to Perform ROS?: Yes Is the patient limited Serbian proficient: No Constitutional: No: Chills, Diaphoresis, Fever Respiratory: No: Cough, Orthopnea, Shortness of Breath Cardiac (ROS): No: Chest Pain ABD/GI: No: Constipated, Diarrhea, Nausea, Vomiting : No: Burning, Dysuria, Hematuria Neurological: No: Headache *Physical Exam - Vital Signs Last Vital Signs Temp Pulse Resp BP Pulse Ox 98.7 F 70 18 113/64 100 06/11/18 10:25 06/11/18 10:25 06/11/18 10:25 06/11/18 10:25 06/11/18 10:25 Medical Decision Making - Medical Decision Making 06/11/18 11:39 73 year old woman with past medical history of L breast implant (1993) 2/2 malignant breast CA, afib, HTN who presents with L breast "soreness" and some swelling for two days, gradual onset, that has been intermittently relieved with Tylenol. DDX: muscle strain vs infection vs tendinopathy W/U: - physical exam ED Course: Patient stable at bedside and does not show any sign of infection that would require antibiotics or hospitalization. Patient informed of clinical impression and counselled about following up outpatient. She agrees to plan. Patient stable for discharge. Given follow up instructions and return precautions. *DC/Admit/Observation/Transfer Diagnosis at time of Disposition: Muscle strain - Discharge Dispostion Disposition: HOME Condition at time of disposition: Stable Decision to Admit order: No - Prescriptions Prescriptions: Acetaminophen [Tylenol] 325 mg PO BID #10 capsule Methocarbamol [Robaxin -] 500 mg PO BID #10 tablet - Referrals Referrals: Melissa Henley MD [Primary Care Provider] - [facility] [place] [Provider Group] - Patient Instructions Printed Discharge Instructions: DI for Muscle Strain Additional Instructions: You were seen in the ED for complaints of L breast pain. In the ED you were examined and evaluated by physicians. There does not appear ti b You are advised to follow up with your primary care physician within 1 week. You were given a prescription for muscle relaxants and pain medications. You were given a referral to the [facility] outpatient clinic please follow up within 1 week. Return to the ED immediately if you experience worsening pain around the breast , redness, swelling, fevers, swelling of the neck, nausea or vomiting. - Post Discharge Activity
--- NOTE | 2018-06-11 12:21 | PDOC ---
Attending Attestation - Resident Resident Name: Valeri Tirado - HPI HPI: 06/11/18 12:15 73 y/ofemale with h/o breats cancer with left breast implant in place. Pt here in ED for eval of ,ild soreness with lifting arms that may be due to her doing pilates, Pt alsonoticed a small circular area about the size of a quarter that she feels could be slightly red so she came in for evaluation. The discomfort on the left chest wall improves with tylenol - Physicial Exam PE: 06/11/18 12:17 HEENT: NCAT, CHRISTIA[place], Neck supple Lungs: + bs karen CTA Heart: S1S2 regular Breast: left breast implant noted, pt with some indentation of the nipple thsi is not new, left breast smaller than rt breast, she said the implant is shrinking, no lymphadenapthy noted in axillae or cervical region of both sides of chest wall, no obvious masses noted rt breast. Small circular area of dry skin noted where pt was concerned is red, no warmth to area ABD: + bs abd soft no guarding or rigididty Neuro: alert and oriented x3 - Medical Decision Making 06/11/18 12:21 73 y/o female concerned about discomfort to left chest wall area x 2 days that responds to tylenol, there is an area of dry skin noted to same area but no redness, no warmth from site nothing to suggest infection. Would continue with tylenol add robaxin prn. Pt to f/u with pcp in the next 72 hrs, If pain persists, redness develops or change in condition, pt may return to ED. PT agrees with this dc plan, ready for dc home.
--- NOTE | 2018-06-13 09:31 | EKG ---
Test Reason : Blood Pressure : / mmHG Vent. Rate : 069 BPM Atrial Rate : 357 BPM P-R Int : 000 ms QRS Dur : 086 ms QT Int : 428 ms P-R-T Axes : 000 -06 020 degrees QTc Int : 458 ms ATRIAL FIBRILLATION ABNORMAL ECG WHEN COMPARED WITH ECG OF 27-AUG-2017 12:43, ATRIAL FIBRILLATION HAS REPLACED SINUS RHYTHM Confirmed by ANSHUL INTERIANO MD ([id number]) on 06/13/2018 9:30:37 AM Referred By: Confirmed By:ANSHUL INTERIANO MD
== END 2018-06-11 12:39 | disposition home or self-care (01) ==
LOC: JER 10:20
DX: S29.011A Strain of muscle and tendon of front wall of thorax, initial encounter (principal); S21.002A Unspecified open wound of left breast, initial encounter; X58.XXXA Exposure to other specified factors, initial encounter; Y93.89 Activity, other specified; Y92.89 Other specified places as the place of occurrence of the external cause; Y99.8 Other external cause status; I10 Essential (primary) hypertension; I50.9 Heart failure, unspecified; I48.91 Unspecified atrial fibrillation; Z79.01 Long term (current) use of anticoagulants; E78.00 Pure hypercholesterolemia, unspecified; Z85.3 Personal history of malignant neoplasm of breast; Z87.891 Personal history of nicotine dependence; Z96.89 Presence of other specified functional implants
CPT/HCPCS: 93005; 93010; 99281-25

== ENCOUNTER 2020-07-17 08:05 | Observation (INO) | payer OTHER ==
--- OUTSIDE RECORDS SUMMARY | 2020-07-17 08:27 | XMS ---
:1945 [facility] Support Name Relationship Address Phone RE Unavailable Unavailable Unavailable GUERITA BARAJAS DAUGHTER [address] [place] [address] GUERITA CALIXTO DAUGHTER [address] [place] [address] Re-disclosure Warning The records that you are about to access may contain information from federally- assisted alcohol or drug abuse programs. If such information is present, then the following federally mandated warning applies: This information has been disclosed to you from records protected by federal confidentiality rules (42 CFR part 2). The federal rules prohibit you from making any further disclosure of this information unless further disclosure is expressly permitted by the written consent of the person to whom it pertains or as otherwise permitted by 42 CFR part 2. A general authorization for the release of medical or other information is NOT sufficient for this purpose. The Federal rules restrict any use of the information to criminally investigate or prosecute any alcohol or drug abuse patient.The records that you are about to access may contain highly sensitive health information, the redisclosure of which is protected by Article 27-F of the [facility] Public Health law. If you continue you may haveaccess to information: Regarding HIV / AIDS; Provided by facilities licensed or operated by the [facility] Office of Mental Health; or Provided by the [facility] Office for People With Developmental Disabilities. If such information is present, then the following [facility] mandated warning applies: This information has been disclosed to you from confidential records which are protected by state law. State law prohibits you from making any further disclosure of this information without the specific written consent of the person to whom it pertains, or as otherwise permitted by law. Any unauthorized further disclosure in violation of state law may result in a fine or [place] health care facility sentence or both. A general authorization for the release of medical or other information is NOT sufficient authorization for further disclosure. Insurance Providers Payer name Policy type Policy ID Covered Covered democrat's Policy P nell / Coverage democrat ID relationship to [employer] Inf ormation type [employer] [id number] [facility] (MEDICARE)
[2020-07-17 08:58] LABS: BASO % 0.6 % (0-2.0); EOS % 0.9 % (0-4.5); HEMOGLOBIN 15.4 GM/dL (10.7-15.3); LYMPH % 52.2 % (8-40); MCH 29.1 pg (25.7-33.7); MCHC 32.9 g/dl (32.0-36.0); MEAN CELL VOLUME 88.5 fl (80-96); MEAN PLT VOLUME 10.3 fl (7.5-11.1); MONO % 7.1 % (3.8-10.2); NEUT % 39.2 % (42.8-82.8); PLATELET COUNT 210 K/MM3 (134-434); RBC 5.31 M/mm3 (3.60-5.2); RDW 13.3 % (11.6-15.6); WHITE BLOOD COUNT 5.5 K/mm3 (4.0-10.0)
[2020-07-17 09:03] LABS: INR 1.56 (0.83-1.09); PROTHROMBIN TIME (PATIENT) 18.5 SEC (9.7-13.0)
[2020-07-17 09:05] LABS: ACTIVATED PTT 35.7 SECONDS (25.2-36.5)
--- NOTE | 2020-07-17 09:27 | PDOC ---
Documentation entered by No Sahu SCRIBE, acting as scribe for Amelia Paez MD. Amelia Paez MD: This documentation has been prepared by the Adelina tello Xhesika, SCRIBE, under my direction and personally reviewed by me in its entirety. I confirm that the documentation accurately reflects all work, treatment, procedures, and medical decision making performed by me. History of Present Illness - General Chief Complaint: Chest Pain Stated Complaint: AFIB / CHEST PAIN Time Seen by Provider: 07/17/20 08:21 History Source: Patient Exam Limitations: No Limitations - History of Present Illness Initial Comments: 07/17/20 08:31 HPI The patient is a 75y/o F with a pmh of L breast implant (1993) 2/2 malignant breast CA, afib on xarelto, HTN (on Amlodipine and Atenolol), lung "tissue scarring" and anemia who presents to the ED for chest tightness since 7:30AM. Pt states her chest tightness is L sided, radiating up to her L shoulder and down her L arm, associated with L arm numbness and lightheadedness. Pt states her BP has been elevated the past 3 days. pt states she checked her BP this morning and it was 148/110. Pt reports chronic tinnitus. Pt denies family history of heart/cardiac disease. Denies fever, chills, SOB, palpitation, dizziness, weakness, N, V, D, abdominal pain, bladder and bowel problems, leg swelling. No changes in vision or blurry vision. No neck pain or back pain. No sick contacts or travel. No new changes in medications. Allergies: None Past Medical History: See HPI Social history: Lives with family. No tobacco, ETOH or drug use. Surgical history: hysterectomy, L breast implant and mastectomy, L ankle plate Meds: as documented in EMR PMD: Dr. Melissa MAURICIO GENERAL/CONSTITUTIONAL: No fever or chills. No weakness. no sweats. HEAD, EYES, EARS, NOSE AND THROAT: No change in vision or hearing. No ear pain or discharge. No sore throat or mouth pain. No difficulty swallowing. No congestion. +chronic tinnitus. CARDIOVASCULAR: No chest pain or palpitations, syncope or edema. +L chest tightness. +L arm numbness. RESPIRATORY: No SOB, cough, wheezing, or hemoptysis. GASTROINTESTINAL No nausea/vomiting. No diarrhea or constipation. No bloody stools. GENITOURINARY: No hematuria, dysuria, frequency, urgency or other changes. MUSCULOSKELETAL: No joint or muscle swelling or pain. No decreased range of motion. No neck or back pain. SKIN: No rash or changes in skin color or lesions. No wounds. NEUROLOGIC:+lightheaded. alert and oriented appropriately. No headache, dizziness, loss of consciousness, or change in strength/sensation. No gait instability. HEMATOLOGIC/LYMPHATIC: No anemia, easy bruising/bleeding, or history of blood clots. No swollen lymph nodes ALLERGIC/IMMUNOLOGIC: No allergies PSYCH: no anxiety/depression All other systems reviewed and negative, or as documented in HPI. Physical exam General: Well appearing, awake and alert, NAD. HEENT: NCAT, PERRL, EOMI, clear conjunctiva, anicteric, moist mucous membranes, clear oropharynx, no oral lesions.. Neck: neck supple, FROM Resp: CTAB, normal and even respirations, no respiratory distress CVS: +irregularly irregular. no murmurs, 2+ peripheral pulses throughout, no peripheral edema Abdomen: soft, NTND, no rebound or guarding. No CVAT. Back: nontender, normal inspection and ROM] MSK: pedal edema, GASCA x4, ROM intact. No clubbing or cyanosis. normal bulk and tone. Extremities: +BL pedal edema. no calf tenderness Neuro: alert, oriented appropriately; no focal neurologic deficits Skin: warm and well perfused, cap refill <2 sec, normal color 07/17/20 09:26 07/17/20 10:34 Past History - Medical History Allergies/Adverse Reactions: Allergies Allergy/AdvReac Type Severity Reaction Status Date / Time No Known Allergies Allergy Verified 07/17/20 09:03 Home Medications: Ambulatory Orders Amlodipine Besylate [Norvasc -] 10 mg PO DAILY #0 11/05/16 Atenolol [Tenormin -] 50 mg PO DAILY #0 11/05/16 Atorvastatin Ca [Lipitor] 10 mg PO DAILY #0 11/05/16 Furosemide [Lasix -] 20 mg PO ASDIR #0 11/05/16 Rivaroxaban [Xarelto -] 20 mg PO DAILY 08/27/17 Levothyroxine [Synthroid -] 25 mcg PO DAILY@0700 #30 tablet 08/28/17 Acetaminophen [Tylenol] 325 mg PO BID #10 capsule 06/11/18 Methocarbamol [Robaxin -] 500 mg PO BID #10 tablet 06/11/18 Cancer: Yes (BREAST) Cardiac Disorders: Yes (A FIB) COPD: No CHF: Yes HTN: Yes Hypercholesterolemia: Yes - Surgical History Orthopedic Surgery: Yes (LEFT ANKLE) - Reproductive History Is Patient Now?: No - Immunization History Immunization Up to Date: Yes - Psycho-Social/Smoking History Smoking Status: No Smoking History: Never smoked Have you smoked in the past 12 months: No Number of Cigarettes Smoked Daily: 0 If you are a former smoker, when did you quit?: many years Information on smoking cessation initiated: No - Substance Abuse Hx (Audit-C & DAST Scrn) How often the patient has a drink containing alcohol: Monthly or less Number of drinks the patient has on a typical day: 1 or 2 Score: In Men: 4 or > Positive; In Women: 3 or > Positive: 1 Screen Result (Pos requires Nsg. Audit-10AR): Negative In the last yr the pt used illegal drug/Rx for NonMed reason: No Score: Yes response is considered Positive: 0 Screen Result (Positive result requires Nsg. DAST-10): Negative *Physical Exam - Vital Signs Last Vital Signs Temp Pulse Resp BP Pulse Ox 97.5 F L 76 18 132/77 95 07/17/20 11:00 07/17/20 11:00 07/17/20 08:21 07/17/20 11:00 07/17/20 11:00 Heart Score/ECG Review - History History: Moderately suspicious - Electrocardiogram EKG: Non specific repolarization disturbance - Age Age: >/= 65 - Risk Factors Risk Factors Heart Score: Yes Hx Hypercholesterolemia, Yes Hx Hypertension Based on the list above the patient has:: 1-2 risk factors - Troponin Troponin: </= normal limit - Score Heart Score - Total: 5 #1 ECG reviewed & interpreted by me at: 08:10 General ECG Interpretation: Normal Rate 07/17/20 09:27 Atrial fibrillation at 83 bpm, normal intervals, narrow QRS, nonspecific T wave abnormalities, no ST elevations or depressions. ED Treatment Course - LABORATORY CBC & Chemistry Diagram: 07/17/20 08:30 07/17/20 08:30 - ADDITIONAL ORDERS Additional order review: Laboratory Results 07/17/20 07/17/20 08:30 08:30 PT with INR 18.50 H INR 1.56 H PTT (Actin FS) 35.7 Sodium 139 Potassium 4.7 Chloride 105 Carbon Dioxide 25 Anion Gap 9 BUN 10.2 Creatinine 0.8 Est GFR (CKD-EPI)AfAm 83.00 Est GFR (CKD-EPI)NonAf 71.61 Random Glucose 107 H Calcium 9.6 Magnesium 2.2 Total Bilirubin 0.8 AST 53 H ALT 27 Alkaline Phosphatase 66 Creatine Kinase 124 Troponin I < 0.02 Total Protein 9.2 H Albumin 4.1 Triglycerides 115 Cholesterol 166 Total LDL Cholesterol 93 HDL Cholesterol 60 07/17/20 08:30 RBC 5.31 H MCV 88.5 MCHC 32.9 RDW 13.3 D MPV 10.3 D Neutrophils % 39.2 L Lymphocytes % 52.2 H Monocytes % 7.1 Eosinophils % 0.9 Basophils % 0.6 - RADIOLOGY Radiology Studies Ordered: Category Date Time Status CHEST PA & LAT [RAD] Stat Radiology 07/17/20 08:22 Completed Medical Decision Making - Medical Decision Making 07/17/20 10:34 Vital Signs Temp Pulse Resp BP Pulse Ox 98.2 F 98 H 18 128/95 98 07/17/20 10:00 07/17/20 10:00 07/17/20 08:21 07/17/20 10:00 07/17/20 10:00 vitals reviewed, wnl. DDx chest pain: ACS, coronary vasospasm, NSTEMI, arrhythmia, unstable angina, PE, dissection, PUD, esophageal spasm, GERD, gastritis, costochondritis, pneumon ia, pleurisy, pericarditis/myocarditis. dehydration, electrolyte/metabolic derangements. Considered but clinically doubt based on HPI and PE: Low suspicion for pulmonary embolism or dissection. Interpreted by ED Physician: CXR (1 view): no acute abnormality: no infiltrates, bones appear intact and structures normal alignment, cardiac silhouette within normal limits. no free air under diaphragm, no pneumothorax. left breast implant noted EKG with atrial fibrillation Chest pain HEART score 5 which denotes Moderate risk and probability for ACS, risk of 14-16% of MACE at 4-6 wks Given risk factors including comorbidities, gender, typical sx. spoke with Dr Jeong for admission, r/o ACS - updated on impression an plan. Plan for admit observation, possible Stress testing, to r/o ACS/ischemia, serial trops and EKG/tele monitoring. ASA administered, no current chest pain, discussion with patient and family at bedside, made aware of impression and plan, questions answered. 07/17/20 10:35 07/17/20 10:36 07/17/20 10:36 07/17/20 11:05 Discharge - Discharge Information Problems reviewed: Yes Clinical Impression/Diagnosis: Chest pain Qualifiers: Chest pain type: unspecified Qualified Code(s): R07.9 - Chest pain, unspecified Condition: Stable - Admission Yes - Follow up/Referral Referrals: Melissa Henley MD [Primary Care Provider] - - Patient Discharge Instructions - Post Discharge Activity
[2020-07-17 09:30] LABS: ALBUMIN 4.1 g/dl (3.4-5.0); ALK PHOS 66 U/L (45-117); ANION GAP 9 MMOL/L (8-16); BILIRUBIN,TOTAL 0.8 mg/dL (0.2-1); BLOOD UREA NITROGEN 10.2 mg/dL (7-18); CALCIUM 9.6 mg/dL (8.5-10.1); CHLORIDE 105 mmol/L (98-107); CHOLESTEROL 166 mg/dL (50-200); CO2 25 mmol/L (21-32); CREATININE 0.8 mg/dL (0.55-1.3); GLUCOSE,RANDOM 107 mg/dL (74-106); HDL CHOLESTEROL 60 mg/dL (40-60); LDL CHOLESTEROL (ONLY SJRH) 93 mg/dL (5-100); MAGNESIUM 2.2 mg/dL (1.8-2.4); POTASSIUM 4.7 mmol/L (3.5-5.1); SGOT/AST 53 U/L (15-37); SGPT/ALT 27 U/L (13-61); SODIUM 139 mmol/L (136-145); TOT PROT 9.2 g/dl (6.4-8.2); TRIGLYCERIDES 115 mg/dL (0-150)
[2020-07-17] MEDS ORDERED: ASPIRIN 81 MG CHEWABLE TABLETS PO ONE (10:35)
[2020-07-17] MEDS ORDERED: ACETAMINOPHEN 325 MG TABLET (FP) PO PRN (10:53)
--- NOTE | 2020-07-17 11:01 | HP ---
Admitting History and Physical - Primary Care Physician PCP: Magnolia Jeong S - Admission Chief Complaint: CP History of Present Illness: The patient is a 75y/o F with a pmh of L breast implant (1993) 2/2 malignant breast CA, afib on xarelto, HTN (on Amlodipine and Atenolol), lung "tissue scarring" and anemia who presents to the ED for chest tightness since 7:30AM. Pt states her chest tightness is L sided, radiating up to her L shoulder and down her L arm, associated with L arm numbness and lightheadedness. Pt states her BP has been elevated the past 3 days. pt states she checked her BP this morning and it was 148/110. Pt reports chronic tinnitus. Pt denies family history of heart/cardiac disease. Denies fever, chills, SOB, palpitation, dizziness, weakness, N, V, D, abdominal pain, bladder and bowel problems, leg swelling. No changes in vision or blurry vision. No neck pain or back pain. No sick contacts or travel. No new changes in medications. pt said she saw PCP dr Steve Browne and also pulm dr Cruz recently; had chest CT in the past c/w lung scar - but no CT this year per pt History Source: Patient - Past Medical History Cardiovascular: Yes: AFIB, HTN, Hyperlipdemia ...: No Heme/Onc: Yes: Cancer (L mastectomy over 20 years ago) - Smoking History Smoking history: Never smoked Have you smoked in the past 12 months: No Aproximately how many cigarettes per day: 0 If you are a former smoker, when did you quit?: many years - Alcohol/Substance Use Hx Alcohol Use: Yes (occasionally) History of Substance Use: reports: None - Social History Usual Living Arrangement: Yes: Alone ADL: Independent History of Recent Travel: No Home Medications - Allergies Allergies/Adverse Reactions: Allergies Allergy/AdvReac Type Severity Reaction Status Date / Time No Known Allergies Allergy Verified 07/17/20 09:03 - Home Medications Home Medications: Ambulatory Orders Amlodipine Besylate [Norvasc -] 10 mg PO DAILY #0 11/05/16 Atenolol [Tenormin -] 50 mg PO DAILY #0 11/05/16 Atorvastatin Ca [Lipitor] 10 mg PO DAILY #0 01/12/17 Furosemide [Lasix -] 20 mg PO ASDIR #0 11/05/16 Rivaroxaban [Xarelto -] 20 mg PO DAILY 08/27/17 Levothyroxine [Synthroid -] 25 mcg PO DAILY@0700 #30 tablet 08/28/17 Acetaminophen [Tylenol] 325 mg PO BID #10 capsule 06/11/18 Methocarbamol [Robaxin -] 500 mg PO BID #10 tablet 06/11/18 Family Medical History Family History: Unremarkable Review of Systems - Review of Systems Constitutional: denies: Chills, Fever Eyes: denies: Blurred Vision, Double Vision HENT: denies: Ear Pain, Epistaxis Cardiovascular: reports: Chest Pain. denies: Edema, Palpitations, Shortness of Breath Respiratory: denies: Cough, SOB, SOB on Exertion Gastrointestinal: denies: Abdominal Pain, Bloating, Constipation, Diarrhea, Vomiting Genitourinary: denies: Dysuria, Flank Pain Musculoskeletal: denies: Back Pain, Joint Swelling Neurological: denies: Change in LOC, Change in Speech, Confusion Endocrine: denies: Unexplained Weight Loss Hematology/Lymphatic: denies: Easily Bruised, Excessive Bleeding Psychiatric: denies: Anxiety, Depression, Suicidal Physical Examination Vital Signs: Vital Signs Temperature 98.2 F 07/17/20 10:00 Pulse Rate 98 H 07/17/20 10:00 Respiratory Rate 18 07/17/20 08:21 Blood Pressure 128/95 07/17/20 10:00 O2 Sat by Pulse Oximetry (%) 98 07/17/20 10:00 Constitutional: Yes: No Distress, Calm Eyes: Yes: Conjunctiva Clear HENT: Yes: Atraumatic Neck: Yes: Supple Cardiovascular: Yes: Regular Rate and Rhythm Respiratory: Yes: CTA Bilaterally Gastrointestinal: Yes: Soft. No: Tenderness Renal/: No: Hematuria Musculoskeletal: No: Joint Stiffness, Joint Swelling Extremities: No: Cold, Cool, Cyanosis Edema: No Integumentary: No: Rash Neurological: Yes: WNL, Alert, Oriented ...Motor Strength: WNL Psychiatric: Yes: WNL, Alert, Oriented. No: Agitated, Suicidal Ideation Labs: CBC, BMP 07/17/20 08:30 07/17/20 08:30 Imaging - Results Chest X-ray: Report Reviewed Other: Report Reviewed Assessment/Plan The patient is a 75y/o F with a pmh of L breast implant (1993) 2/2 malignant breast CA, afib on xarelto, HTN (on Amlodipine and Atenolol), lung "tissue scarring" and anemia who presents to the ED for chest tightness and uncontrolled HTN place in OBS telemetry CEx3 chest CT further w/u per cardiology BP control d/w pt and staff
[2020-07-17] MEDS ORDERED: ASPIRIN 325 MG ENTERIC COATED TABLET (FP) ONE (11:49)
--- NOTE | 2020-07-17 13:55 | EKG ---
Test Reason : Blood Pressure : / mmHG Vent. Rate : 083 BPM Atrial Rate : 326 BPM P-R Int : 000 ms QRS Dur : 090 ms QT Int : 394 ms P-R-T Axes : 000 -06 063 degrees QTc Int : 462 ms POOR DATA QUALITY, INTERPRETATION MAY BE ADVERSELY AFFECTED ATRIAL FIBRILLATION NONSPECIFIC ST AND T WAVE ABNORMALITY ABNORMAL ECG WHEN COMPARED WITH ECG OF 11-JUN-2018 10:52, NONSPECIFIC T WAVE ABNORMALITY NO LONGER EVIDENT IN INFERIOR LEADS Confirmed by Mick Saldana ([id number]) on 07/17/2020 1:55:25 PM Referred By: Confirmed By:Mick Saldana
--- NOTE | 2020-07-17 14:20 | CON.CARD ---
Consult Consult Specialty:: cardiology Referred by:: medicine Reason for Consultation:: chest pain - History of Present Illness Chief Complaint: chest pain History of Present Illness: 75F h/o breast cancer, afib on xarelto, HTN, anemia p/w chest tightness starting this morning. [place] in usual state of health, was getting ready and felt pain in L arm and down her left side with a tingling and numbness sensation, then felt pressure in her chest. She is not sure how long it went on, maybe an hour. Notes elevated BP 148/110 in the last few days, generally has been told BP runs low. currently no chest pain, palps, dizziness, dyspnea. 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 no prior cardiac disease. - Past Medical History Cardio/Vascular: Yes: AFIB, HTN, Hyperlipdemia ...: No - Alcohol/Substance Use Hx Alcohol Use: Yes (occasionally) History of Substance Use: reports: None - Smoking History Smoking history: Never smoked Have you smoked in the past 12 months: No Aproximately how many cigarettes per day: 0 If you are a former smoker, when did you quit?: many years - Social History ADL: Independent History of Recent Travel: No Home Medications - Allergies Allergies/Adverse Reactions: Allergies Allergy/AdvReac Type Severity Reaction Status Date / Time No Known Allergies Allergy Verified 07/17/20 09:03 - Home Medications Home Medications: Ambulatory Orders Amlodipine Besylate [Norvasc -] 10 mg PO DAILY #0 11/05/16 Atenolol [Tenormin -] 50 mg PO DAILY #0 11/05/16 Atorvastatin Ca [Lipitor] 10 mg PO DAILY #0 11/05/16 Furosemide [Lasix -] 20 mg PO ASDIR #0 11/05/16 Rivaroxaban [Xarelto -] 20 mg PO DAILY 08/27/17 Levothyroxine [Synthroid -] 25 mcg PO DAILY@0700 #30 tablet 08/28/17 Acetaminophen [Tylenol] 325 mg PO BID #10 capsule 06/11/18 Methocarbamol [Robaxin -] 500 mg PO BID #10 tablet 06/11/18 Family Medical History Family History: Unremarkable Review of Systems - Review of Systems Constitutional: reports: No Symptoms Eyes: reports: No Symptoms HENT: reports: No Symptoms Neck: reports: No Symptoms Cardiovascular: reports: No Symptoms Respiratory: reports: No Symptoms Gastrointestinal: reports: No Symptoms Genitourinary: reports: No Symptoms Musculoskeletal: reports: No Symptoms Integumentary: reports: No Symptoms Neurological: reports: No Symptoms Endocrine: reports: No Symptoms Hematology/Lymphatic: reports: No Symptoms Psychiatric: reports: No Symptoms Vital Signs: Vital Signs Temperature 97.6 F 07/17/20 13:26 Pulse Rate 77 07/17/20 13:26 Respiratory Rate 18 07/17/20 13:26 Blood Pressure 107/68 07/17/20 13:26 O2 Sat by Pulse Oximetry (%) 100 07/17/20 13:26 Constitutional: Yes: No Distress, Calm Eyes: Yes: Conjunctiva Clear, EOM Intact HENT: Yes: Atraumatic, Normocephalic Neck: Yes: Supple, Trachea Midline Respiratory: Yes: Regular, CTA Bilaterally Gastrointestinal: Yes: Normal Bowel Sounds, Soft Cardiovascular: Yes: Regular Rate and Rhythm Heart Sounds: Yes: S1, S2 Musculoskeletal: No: Back Pain Extremities: No: Cold Edema: No Peripheral Pulses WNL: No Integumentary: No: Jaundice Neurological: Yes: Alert, Oriented Psychiatric: No: Agitated - Other Data Labs, Other Data: CBC, BMP 07/17/20 08:30 07/17/20 08:30 INR, PTT INR 1.56 (0.83-1.09) H 07/17/20 08:30 Troponin, BNP 07/17/20 08:30 Troponin I < 0.02 Troponin, BNP 07/17/20 08:30 Troponin I < 0.02 Assessment/Plan EKG: afib, rate controlled cxr: no acute process chest pain - initial trop negative, EKG no ischemic changes - serial troponin, monitoring on tele - evaluate with nuclear stress test afib - rate controlled - cont xarelto, atenolol HTN - stable, cont current meds history of breast cancer - manage per primary
[2020-07-17 22:48] VITALS: BMI 30.2
[2020-07-18] MEDS ORDERED: LEVOTHYROXINE NA 25 MCG TABLET (FP) PO SCH (07:00)
[2020-07-18] MEDS: amLODIPine BESYLATE 10 MG TABLET (FP) PO SCH ×2 (08:02→12:38)
[2020-07-18 08:08] VITALS: PULSE 78
--- NOTE | 2020-07-18 08:39 | DS ---
Physical Examination Vital Signs: Vital Signs Temperature 98 F 07/18/20 08:07 Pulse Rate 78 07/18/20 08:07 Respiratory Rate 18 07/18/20 08:07 Blood Pressure 133/91 07/18/20 08:07 O2 Sat by Pulse Oximetry (%) 96 07/18/20 08:07 Findings/Remarks: no CP SOB chest CT and stress test - as ordered; if negative can be DC home; seen by cardiology; BP better; ESR 61 d/w pt and PCP to have outpt w/u'; f/u Spep upep IF results from H as outpt with her PCP dr Henley Constitutional: Yes: No Distress, Calm Eyes: Yes: Conjunctiva Clear HENT: Yes: Atraumatic Neck: Yes: Supple Cardiovascular: Yes: Regular Rate and Rhythm Respiratory: Yes: CTA Bilaterally Gastrointestinal: Yes: Soft. No: Tenderness Renal/: No: Hematuria Musculoskeletal: No: Joint Stiffness, Joint Swelling Extremities: No: Cold, Cool, Cyanosis Edema: No Integumentary: No: Rash, Venous Stasis Changes Neurological: Yes: Alert, Oriented ...Motor Strength: WNL Psychiatric: Yes: Alert, Oriented. No: Agitated, Suicidal Ideation Labs: CBC, BMP 07/17/20 08:30 07/17/20 08:30 Discharge Summary Problems reviewed: Yes Reason For Visit: CHEST PAIN Current Active Problems Chest pain (Acute) Procedures: Principal: 75 YOF HTN and breast CA admitted as OBS with CP LACIE Other Procedures: CEx3; telemetry; cardiology eval; stress test and chest CT Hospital Course: improved; CT chest and stress test negative; cleared by cardiology to DC home; f/u outpt; found to have high ESR needs outpt w/u and pt and PCP Condition: Improved - Instructions Diet, Activity, Other Instructions: f/u pending labs with PCP next week spep upep and w.u high ESR with PCP - d/w pt and PCP f/u cardio and pulm outpt [facility] per PCP RTER if worse or recurrent Referrals: Tim Darnell MD [Staff Physician] - Melissa Henley MD [Primary Care Provider] - Disposition: HOME - Home Medications Comprehensive Discharge Medication List: Ambulatory Orders Amlodipine Besylate [Norvasc -] 10 mg PO DAILY #0 11/05/16 Atenolol [Tenormin -] 50 mg PO DAILY #0 11/05/16 Atorvastatin Ca [Lipitor] 10 mg PO DAILY #0 11/05/16 Furosemide [Lasix -] 20 mg PO ASDIR #0 11/05/16 Rivaroxaban [Xarelto -] 20 mg PO DAILY 08/27/17 Levothyroxine [Synthroid -] 25 mcg PO DAILY@0700 #30 tablet 08/28/17 Acetaminophen [Tylenol] 325 mg PO BID #10 capsule 06/11/18 Methocarbamol [Robaxin -] 500 mg PO BID #10 tablet 06/11/18
[2020-07-18] MEDS ORDERED: REGADENOSON 0.4 MG/5 ML PRE-FILLED SYRINGE IVPUSH ONE ×2 (09:56→10:15)
[2020-07-18] MEDS ORDERED: FUROSEMIDE 20 MG TABLET (FP) PO SCH (10:00)
[2020-07-18] MEDS ORDERED: ATENOLOL 50 MG TABLET (FP) PO SCH (10:00)
--- NOTE | 2020-07-18 11:55 | PN ---
Progress Note (short form) - Note Progress Note: Chief Complaint: chest pain History of Present Illness: 75F h/o breast cancer, afib on xarelto, HTN, anemia p/w chest tightness starting this morning. [place] in usual state of health, was getting ready and felt pain in L arm and down her left side with a tingling and numbness sensation, then felt pressure in her chest. She is not sure how long it went on, maybe an hour. Notes elevated BP 148/110 in the last few days, generally has been told BP runs low. currently no chest pain, palps, dizziness, dyspnea. 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 no prior cardiac disease. no cp sob palps dizzy today Current Medications Generic Name Dose Route Start Last Admin Trade Name Freq PRN Reason Stop Dose Admin Acetaminophen 650 mg 07/17/20 10:53 07/18/20 02:45 Tylenol - PO 650 mg BID PRN Administration PAIN Amlodipine Besylate 10 mg 07/18/20 10:00 07/18/20 08:02 Norvasc - PO 10 mg DAILY NATALIE Administration Atenolol 50 mg 07/18/20 10:00 Tenormin - PO DAILY [facility] Atorvastatin Calcium 10 mg 07/18/20 22:00 Lipitor - PO HS NATALIE Furosemide 20 mg 07/18/20 10:00 Lasix - PO DAILY [facility] Levothyroxine Sodium 25 mcg 07/18/20 07:00 07/18/20 06:06 Synthroid - PO 25 mcg DAILY@0700 [facility] Administration Rivaroxaban 20 mg 07/18/20 18:00 Xarelto PO DAILY@1800 [facility] Vital Signs Period Temp Pulse Resp BP Sys/Cruz Pulse Ox Last 24 Hr 97.5 F-98.8 F 64-80 18-20 91-140/61-101 95-100 Constitutional: Yes: No Distress, Calm Eyes: Yes: Conjunctiva Clear, EOM Intact HENT: Yes: Atraumatic, Normocephalic Neck: Yes: Supple, Trachea Midline Respiratory: Yes: Regular, CTA Bilaterally Gastrointestinal: Yes: Normal Bowel Sounds, Soft Cardiovascular: Yes: Regular Rate and Rhythm Heart Sounds: Yes: S1, S2 Musculoskeletal: No: Back Pain Extremities: No: Cold Edema: No Peripheral Pulses WNL: No Integumentary: No: Jaundice Neurological: Yes: Alert, Oriented Psychiatric: No: Agitated - Other Data Labs, Other Data: CBC, BMP 07/17/20 08:30 07/17/20 08:30 Assessment/Plan EKG: afib, rate controlled tele: afib, rate ok cxr: no acute process chest pain - trop negative, EKG no ischemic changes, cp resolved - no signs acs - evaluate with nuclear stress test today, if benign then ok for dc from cardiac pov afib - rate controlled - cont xarelto, atenolol HTN - stable, cont current meds history of breast cancer - manage per primary
[2020-07-18 13:55] VITALS: BP 135/85; TEMP 98.3
[2020-07-18] MEDS ORDERED: RIVAROXABAN 20 MG TABLET PO SCH (18:00)
[2020-07-18] MEDS ORDERED: ATORVASTATIN CA 10 MG TABLET (FP) PO SCH (22:00)
== END 2020-07-18 17:35 | disposition home or self-care (01) ==
LOC: JER 08:05 → JERBED 10:37 → J4W 21:58
PROVIDERS: ADMIT Internal Medicine; ATTEND Internal Medicine
PROC: 3E033GC Introduction of Other Therapeutic Substance into Peripheral Vein, Percutaneous Approach (ICD-10-PCS; principal; 2020-07-17)
DX: I48.91 Unspecified atrial fibrillation (principal); I11.0 Hypertensive heart disease with heart failure; Z85.3 Personal history of malignant neoplasm of breast; R07.89 Other chest pain; H93.19 Tinnitus, unspecified ear; R42 Dizziness and giddiness; E78.00 Pure hypercholesterolemia, unspecified; Z79.01 Long term (current) use of anticoagulants; Z87.891 Personal history of nicotine dependence; D64.9 Anemia, unspecified
CPT/HCPCS: 36415; 71046-TC-FY; 71250-TC; 78452-TC; 80053; 80061; 82550; 82784; 83721; 83735; 84155; 84165; 84484; 85025; 85610; 85651; 85730; 93005; 93010; 93017; 96374; 99285-25; A9502; G0378; J2785; U0003